=== PATIENT | female | born 1965 | race African-American/Black ===

== ENCOUNTER 2018-01-22 08:27 | Day surgery (SDC) | payer OTHER ==
[2018-01-22] MEDS ORDERED: SOD CHLORIDE 0.9% 1,000 ML IV (10:00)
[2018-01-22] MEDS ORDERED: CEFAZOLIN 2 GM/50 ML (PMX) 50 ML IVPB (10:00)
[2018-01-22] MEDS ORDERED: ISOSULFAN BLUE 1% 5 ML INJ SC (12:06)
[2018-01-22 12:46] LABS: ADD MAN DIFF? NO
[2018-01-22 12:54] LABS: EOSINOPHILS # 0.1 10^3/ul (0.0-0.5); EOSINOPHILS % 1.5 % (0.0-7.0); HEMATOCRIT 40.2 % (37.0-47.0); HEMOGLOBIN 13.1 g/dl (12.0-16.0); LYMPHOCYTES # 1.6 10^3/ul (0.8-2.9); LYMPHOCYTES % 39.8 % (15.0-51.0); MEAN CORPUSCULAR HEMOGLOBIN 27.2 pg (29.0-33.0); MEAN CORPUSCULAR HGB CONC 32.6 g/dl (32.0-37.0); MEAN CORPUSCULAR VOLUME 83.6 fl (82.0-101.0); MEAN PLATELET VOLUME 9.7 fl (7.4-10.4); MONOCYTE # 0.3 10^3/ul (0.3-0.9); MONOCYTES % 8.3 % (0.0-11.0); NEUTROPHILS % 49.2 % (39.0-77.0); PLATELET COUNT 373 10^3/UL (140-415); RED BLOOD COUNT 4.81 10^6/ul (4.20-5.40); RED CELL DISTRIBUTION WIDTH 12.9 % (11.5-14.5)
[2018-01-22 12:54] LABS: WHITE BLOOD COUNT 4.1 10^3/ul (4.8-10.8)
[2018-01-22 13:03] LABS: ALANINE AMINOTRANSFERASE 20 IU/L (13-69); ALBUMIN 4.3 g/dl (3.3-4.9); ALBUMIN/GLOBULIN RATIO 1.04; ALKALINE PHOSPHATASE 84 IU/L (42-121); ANION GAP 16 (8-16); ASPARTATE AMINO TRANSFERASE 16 IU/L (15-46); BILIRUBIN,INDIRECT 0.1 mg/dl (0-1.1); BILIRUBIN,TOTAL 0.1 mg/dl (0.2-1.3); CARBON DIOXIDE 27 mmol/L (21-31); CHLORIDE 108 mmol/L (97-110); GLUCOSE 91 mg/dl (70-220); TOTAL PROTEIN 8.4 g/dl (6.1-8.1)
[2018-01-22 13:08] LABS: HOLD TRANSMISSIONS 1; INR 0.88; PT RATIO 0.9
[2018-01-22 13:09] LABS: PARTIAL THROMBOPLASTIN TIME 27.3 Sec (25.0-35.0)
[2018-01-22 13:12] LABS: BLOOD UREA NITROGEN 12 mg/dl (7-20); CALCIUM 9.2 mg/dl (8.4-10.2); CREATININE 0.77 mg/dl (0.44-1.00); POTASSIUM 3.2 mmol/L (3.5-5.1); SODIUM 148 mmol/L (135-144)
[2018-01-22] MEDS ORDERED: CEFAZOLIN 1 GM INJ (14:43)
[2018-01-22] MEDS ORDERED: MEPERIDINE 100 MG INJ (14:43)
[2018-01-22] MEDS ORDERED: LIDOCAINE 2% (SDV) 5 ML INJ (14:43)
[2018-01-22] MEDS ORDERED: PROPOFOL 20 ML (14:43)
[2018-01-22] MEDS ORDERED: HYDROmorphONE (0.2 MG/ML) 10ML SYG IV ×3 (15:00)
[2018-01-22] MEDS ORDERED: KETOROLAC 15 MG INJ IV (15:00)
[2018-01-22] MEDS ORDERED: KETOROLAC 30 MG INJ IV (15:00)
[2018-01-22] MEDS ORDERED: FENTAnyl 50 MCG/ML VIAL IV ×6 (15:00)
[2018-01-22] MEDS ORDERED: MEPERIDINE 25 MG INJ IV ×2 (15:00)
[2018-01-22] MEDS ORDERED: LABETALOL HCL 20MG INJ IV ×2 (15:00)
[2018-01-22] MEDS ORDERED: HYDROmorphONE 0.5 MG/0.5 ML SYG IV ×3 (15:00)
[2018-01-22] MEDS ORDERED: ONDANSETRON 4 MG INJ IV ×2 (15:00)
[2018-01-22] MEDS ORDERED: hydrALAzine 20 MG INJ IV ×2 (15:00)
[2018-01-22] MEDS: STERILE WATER 1L IRRIG BTL IRR (15:23)
[2018-01-22] MEDS ORDERED: HYDROCODONE/APAP (7.5/325) TAB PO (15:30)
[2018-01-22] MEDS ORDERED: ONDANSETRON 4 MG INJ (15:50)
[2018-01-22] MEDS ORDERED: METOCLOPRAMIDE 10 MG INJ (15:51)
== END 2018-01-22 17:23 | disposition home or self-care (01) ==
LOC: SDS 08:27
DX: D05.12 Intraductal carcinoma in situ of left breast (principal); N60.02 Solitary cyst of left breast
CPT/HCPCS: 19301; 80053; 85025; 85610; 85730; 88307